=== PATIENT | male | born 1990 | race Caucasian/White ===

== ENCOUNTER 2022-02-24 02:31 | Emergency (ER) | payer OTHER ==
[~2022-02-24] VITALS: Ht 190.5 cm; Wt 99.8 kg
--- NOTE | 2022-02-24 02:40 | NUR ---
BIBS. R UPPER ARM & R POSTERIOR LEG LACERATION. FELL BACKWARDS ON GLASS DOOR. - BLOOD THINNERS. TDAP UTD. PT A/OX4. TOLERATING R/A WELL WITH NO SOB. AMBULATORY WITH STEADY GAIT. SAFETY MEASURES IN PLACE.
--- NOTE | 2022-02-24 02:54 | NUR ---
LAC NOTED TO RLE WITH ACTIVE BLEEDING. WOUND CLEANDED AND APPLIED PRESSURE AND DRESSING.
[2022-02-24] MEDS ORDERED: LIDOCAINE 1%-EPI 1:100,000 20 ML VIAL ONE (03:08)
--- NOTE | 2022-02-24 03:16 | NUR ---
DR. NEWTON CAPUTO AT PT'S BEDSIDE FOR WOUND CARE
[2022-02-24] MEDS ORDERED: TDAP [DIPH/PERTUSSIS/TET] 0.5 ML VIAL IM ONE ×2 (03:17→03:30)
[2022-02-24] MEDS ORDERED: LIDOCAINE 1%-EPI 1:100,000 50 ML VIAL IJ ONE (03:30)
[2022-02-24] MEDS ORDERED: IBUP-1957 PO (04:07)
--- NOTE | 2022-02-24 04:50 | NUR ---
Patient discharged to home in stable condition. RX Written and verbal after care instructions given. Patient verbalizes understanding of instruction. pt ambulatory with a steady gait
[2022-02-24 04:51] VITALS: BP 127/86
== END 2022-02-24 05:09 | disposition home or self-care (01) ==
LOC: ER 02:34
DX: S81.811A Laceration without foreign body, right lower leg, initial encounter (principal); W01.198A Fall on same level from slipping, tripping and stumbling with subsequent striking against other object, initial encounter; Y93.89 Activity, other specified; Y92.89 Other specified places as the place of occurrence of the external cause; Y99.8 Other external cause status
CPT/HCPCS: 12004; 73590; 90471; 90715; 99283; A6403 ×2; J3490 ×2